=== PATIENT | male | born 1975 | race Two or more races ===

== ENCOUNTER → 2020-04-09 | Outpatient (CLI) | payer BC ==
[2020-04-10 00:27] LABS: Prostate Specific Antigen 1.1 ng/mL (0.0-2.5)
== END | disposition home or self-care (01) ==
LOC: LABWHC1 14:48
DX: M54.6 Pain in thoracic spine (principal); M96.1 Postlaminectomy syndrome, not elsewhere classified; Z68.23 Body mass index [BMI] 23.0-23.9, adult
CPT/HCPCS: 36415; 84153; 84402; 84403

== ENCOUNTER → 2020-05-03 | Outpatient (CLI) | payer BC ==
[2020-05-03 19:18] LABS: Basophils # (A) 0.03 X 10*3/uL (0.00-0.10); Basophils % (A) 0.4 %; Eosinophils # (A) 0.21 X 10*3/uL (0.04-0.35); Eosinophils % (A) 2.7 %; HCT 43.9 % (39.6-50.0); HGB 14.2 g/dL (13.0-17.0); Lymphocytes # (A) 1.63 X 10*3/uL (0.90-5.00); Lymphocytes % (A) 21.3 %; MCH 29.8 pg (27.0-32.0); MCHC 32.3 g/dL (32.0-37.0); Mean Platelet Volume 10.1 fL (9.5-12.2); Monocytes # (A) 0.53 X 10*3/uL (0.20-1.00); Monocytes % (A) 6.9 %; Neutrophils # (A) 5.19 X 10*3/uL (1.80-7.70); Platelet Count 300 X 10*3/uL (140-440); RBC 4.77 X 10*6/uL (4.40-5.60); WBC 7.64 X 10*3/uL (4.50-10.00)
[2020-05-03 20:07] LABS: Albumin 4.9 g/dL (3.80-4.90); Albumin/Globulin Ratio 2.72 (1.60-3.17); Anion Gap 7.3 mmol/L (4.00-12.00); BUN/Creat Ratio 16.67 Ratio (12.00-20.00); Calcium 9.6 mg/dL (8.7-10.3); Carbon Dioxide 27.7 mmol/L (21.6-31.8); Globulin 1.8 g/dL (1.6-3.3); Non-African American GFR(CKD) 103.5 (60.0-200.0); Potassium 4.8 mmol/L (3.5-5.5); Total Bilirubin 0.4 mg/dL (0.2-1.2); Total Protein 6.7 g/dL (6.2-8.2)
[2020-05-03 21:42] LABS: Hemoglobin A1C 5.1 % (4.0-6.0)
== END | disposition home or self-care (01) ==
LOC: LABWHC1 10:34
PROVIDERS: ATTEND Pain Medicine Interventional Pain Medicine
DX: M54.6 Pain in thoracic spine (principal); M96.1 Postlaminectomy syndrome, not elsewhere classified; R53.83 Other fatigue
CPT/HCPCS: 36415; 80053; 82306; 83036; 84439; 84443; 85025

== ENCOUNTER 2021-11-24 02:03 | Emergency (ER) | payer BC ==
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
[2021-11-24] MEDS ORDERED: DIPH,PERTUS(ACELL)TETVAC-LF 0.5 ML VIAL IM ONE (02:22)
[2021-11-24] MEDS ORDERED: SODIUM CHLORIDE 3%(HYPERTONIC) 500 ML IV SCH ×2 (02:30→02:45)
[2021-11-24] MEDS ORDERED: cefTRIAXone IN SWFI 1,000 MG/10 ML SYRINGE IVP STA (02:30)
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
[2021-11-24 02:57] LABS: Basophils # (A) 0.1 k/uL (0-0.2); Basophils % (A) 0 %; Eosinophils # (A) 0.1 k/uL (0-0.7); Eosinophils % (A) 1 %; HCT 31.6 % (39.0-53.0); HGB 10.4 gm/dL (13.0-17.5); Lymphocytes # (A) 3.9 k/uL (1.0-4.8); Lymphocytes % (A) 29 %; MCH 29.3 pg (25.0-35.0); MCHC 32.8 g/dL (31.0-37.0); MCV 89.5 fL (80.0-100.0); Mean Platelet Volume 7.7; Monocytes # (A) 0.4 k/uL (0-1.0); Monocytes % (A) 3 %; Neutrophils # (A) 8.7 k/uL (1.3-7.7); Neutrophils % (A) 65 %; Platelet Count 331 k/uL (150-450); RBC 3.53 m/uL (4.30-5.90); RDW 12.4 % (11.5-15.5); WBC 13.4 k/uL (3.8-10.6)
[2021-11-24] MEDS ORDERED: NOREPINEPHRINE 4 MG in SODIUM CHLORIDE 0.9% 250 ML IV ONE (02:57)
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
[2021-11-24 03:10] LABS: Ionized Calcium 4.7 mg/dL (4.5-5.3)
[2021-11-24 03:13] LABS: INR 1.3 (<1.2); Partial Thromboplastin Time 27.8 sec (22.0-30.0); Prothrombin Time 13.3 sec (9.0-12.0)
[2021-11-24 03:15] LABS: Albumin 3.4 g/dL (3.5-5.0); Calcium 7.9 mg/dL (8.4-10.2); Potassium 3.9 mmol/L (3.5-5.1); Total Bilirubin 0.3 mg/dL (0.2-1.3); Total Protein 5.6 g/dL (6.3-8.2)
[2021-11-24 03:23] VITALS: BP 136/101; PULSE 80
== END 2021-11-24 02:53 | disposition other institution (70) ==
LOC: EC 02:03
DX: S01.93XA Puncture wound without foreign body of unspecified part of head, initial encounter (principal); T79.4XXA Traumatic shock, initial encounter; E87.2 Acidosis; D72.829 Elevated white blood cell count, unspecified; D64.9 Anemia, unspecified; Y90.7 Blood alcohol level of 200-239 mg/100 ml
CPT/HCPCS: 99291; 36556; 36430; 94002; 86900; 86901; 80053; 82330; 83605; 84484; 85025; 85384; 85610; 85730; 86850; 86920; 80320; 72170; 71045; 90715; 90471; P9016; P9059; 36415; 80051; 85027